=== PATIENT | male | born 1975 | race Caucasian/White ===

== ENCOUNTER → 2016-09-26 | Outpatient (CLI) | payer MEDICAID | LOC: FIMAGING 06:45 | PROVIDERS: ATTEND Psychiatry & Neurology Neurology | DX: G40.909 Epilepsy, unspecified, not intractable, without status epilepticus (principal); G93.89 Other specified disorders of brain ==

== ENCOUNTER → 2016-10-13 | Outpatient (CLI) | payer MEDICAID ==
--- NOTE | 2016-10-17 13:37 | CPEEG ---
[f rep st] ELECTROENCEPHALOGRAM FOUR-HOUR VIDEO EEG DATE OF STUDY: 10/13/2016 DATE OF INTERPRETATION: 10/17/2016. INTERPRETATION: This 4-hour video EEG recording is normal. There were no potentially epileptogenic abnormalities present in the awake or sleep recordings. During the video EEG monitoring session, the patient did not have any clinical events. REPORT: This 4-hour video EEG contains 10-11 Hz alpha activity to the posterior head regions. There was no abnormal activation at rest, during photic stimulation, or hyperventilation. The patient became drowsy and fell into sustained sleep during the study. There was no abnormal activation during drowsiness, sleep, or during times of arousal. The patient did not have any clinical events during the video EEG monitoring session. /[id number]/MODL MTDD
== END ==
LOC: FCPNEURO 08:36
PROVIDERS: ATTEND Psychiatry & Neurology Neurology
DX: G40.909 Epilepsy, unspecified, not intractable, without status epilepticus (principal)

== ENCOUNTER 2017-01-03 11:22 | Emergency (ER) | payer MEDICAID ==
[2017-01-03 11:30] VITALS: RESP 16; TEMP 98.4
[2017-01-03] MEDS ORDERED: IBUPROFEN 600 MG TAB PO ONE ×2 (11:35→11:36)
[2017-01-03 12:46] LABS: COLOR YELLOW; LEUKOCYTE ESTERASE,URINE NEGATIVE (NEGATIVE); NITRITE,URINE NEGATIVE (NEGATIVE)
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
[2017-01-03 13:22] VITALS: BP 143/89; PULSE 63; O2SAT 97
== END 2017-01-03 13:22 | disposition home or self-care (01) ==
DX: S20.219A Contusion of unspecified front wall of thorax, initial encounter (principal); S50.02XA Contusion of left elbow, initial encounter; F17.200 Nicotine dependence, unspecified, uncomplicated; V18.2XXA Unspecified pedal cyclist injured in noncollision transport accident in nontraffic accident, initial encounter

== ENCOUNTER 2018-05-27 14:17 | Emergency (ER) | payer MEDICAID ==
[2018-05-27 14:20] VITALS: BP 131/88
--- NOTE | 2018-05-27 14:40 | EDPHY ---
H & P Time Seen by Provider: 05/27/18 14:31 HPI/ROS: Chief complaint. Seizure HPI. 42-year-old male here by EMS after having an apparent seizure. Patient does not rectal recall what happened at home. He tells me something happened any thinks he had a seizure. He was having confusion and difficulty thinking and difficulty speaking following the event. There were no witnesses. He is now speaking normally. He does not know when his last seizure was. He claims compliance with [facility]. No illness including fever cough. Did not bite his tongue. Now moves all extremities. Patient arrives by EMS and then promptly takes out his IV and is not sure whether he wants to stay or leave. He agrees to stay for some evaluation. ROS 10 systems were reviewed and negative with the exception of the elements mentioned in the history of present illness Past Medical/Surgical History: Depression, traumatic brain injury, seizure disorder, back fracture Social History: Single, daily smoker, no alcohol Smoking Status: Current every day smoker Physical Exam: General Appearance: Alert well-developed male mild distress. Vital signs are stable Eyes: Pupils equal and round no pallor or injection. ENT, no oral pharyngeal or dental trauma. No tongue bite Respiratory: There are no retractions, lungs are clear to auscultation. Cardiovascular: Regular rate and rhythm. Gastrointestinal: Abdomen is soft and nontender, no masses, bowel sounds normal. Neurological: Awake and alert, sensory and motor exams grossly normal. Skin: Warm and dry, no rashes. Musculoskeletal: Neck is supple nontender. Extremities symmetrical, full range of motion. Psychiatric: Patient is oriented X 3, there is mild agitation. Constitutional: Initial Vital Signs Temperature (C) 36.6 C 05/27/18 14:19 Heart Rate 84 05/27/18 14:19 Respiratory Rate 16 05/27/18 14:19 Blood Pressure 131/88 H 05/27/18 14:19 O2 Sat (%) 93 05/27/18 14:19 O2 Delivery Mode Room Air Allergies/Adverse Reactions: No Known Allergies Allergy (Verified 05/27/18 14:22) Home Medications: Medication Instructions Recorded traZODone [traZODONE 100MG (*)] 300 mg PO HS #90 tab 02/20/15 Keppra 05/27/18 Remeron 05/27/18 Medical Decision Making Procedures: Old records are reviewed Keppra by mouth ED Course/Re-evaluation: At 2:50 p.m. Patient decides that he wants to leave without further evaluation. Patient and I discussed risks and benefits. He is encouraged to return return for another seizure or event Differential Diagnosis: Probable seizure. Patient had some type of event that was unwitnessed. He has a seizure disorder. - Data Points Medications Given: Discontinued Medications Levetiracetam (Keppra) 500 mg PO EDNOW ONE Stop: 05/27/18 14:49 Last Admin: 05/27/18 14:53 Dose: 500 mg Departure - Departure Disposition: Home, Routine, Self-Care Clinical Impression: Seizure Condition: Good Instructions: Recurrent Seizures in Adults (ED) Additional Instructions: Make sure you take your medication as prescribed. Return for another seizure or event Follow-up with your regular physician in the next 2-3 days without fail for further evaluation Referrals: Patient,NotPresent [Primary Care Provider] - As per Instructions Sagar Bentley DO [Doctor of Osteopathy] - As per Instructions Hawk Rai MD [Medical Doctor] - 2-3 days without fail
[2018-05-27] MEDS ORDERED: levETIRAcetam 500 MG TAB PO ONE (14:48)
[2018-05-27 17:18] LABS: PLATELET COUNT 266 10^3/uL (150-400)
== END 2018-05-27 15:02 | disposition home or self-care (01) ==
LOC: EDUNIT#
DX: R56.9 Unspecified convulsions (principal); F32.9 Major depressive disorder, single episode, unspecified; F17.200 Nicotine dependence, unspecified, uncomplicated; Z87.820 Personal history of traumatic brain injury; Z87.81 Personal history of (healed) traumatic fracture

== ENCOUNTER → 2018-07-20 | Outpatient (CLI) | payer MEDICAID ==
--- NOTE | 2018-07-24 10:56 | CPEEG ---
[f rep st] ELECTROENCEPHALOGRAM FOUR-HOUR VIDEO EEG DATE OF STUDY: 07/20/2018 DATE OF INTERPRETATION: 07/24/2018 INTERPRETATION: This 4-hour video EEG recording is normal. There were no potentially epileptogenic abnormalities present in the awake or sleep recordings. The patient did not have any clinical events during the video EEG monitoring session. REPORT: This 4-hour video EEG contains 10 Hz alpha activity of the posterior head regions. There wa s no abnormal activation at rest, during photic stimulation, or hyperventilation. The patient became drowsy and fell asleep during the study. There was no abnormal activation during drowsiness, sleep, or during times of arousal. The patient did not have any clinical events during the video EEG monit oring session. /[id number]/MODL
== END ==
LOC: FCPNEURO 08:17
PROVIDERS: ATTEND Psychiatry & Neurology Neurology
DX: G40.909 Epilepsy, unspecified, not intractable, without status epilepticus (principal)